=== PATIENT | female | born 2000 | race African-American/Black ===

== ENCOUNTER 2020-08-23 12:21 | Emergency (ER) | payer MEDICAID ==
[~2020-08-23] VITALS: Ht 154.9 cm; Wt 91.0 kg
[2020-08-23 14:06] LABS: CLARITY URINE CLOUDY (CLEAR); COLOR URINE YELLOW (YELLOW); KETONES URINE NEGATIVE (NEGATIVE); LEUKOCYTE ESTERASE URINE 3+ (NEGATIVE); NITRITE URINE NEGATIVE (NEGATIVE); OCCULT BLOOD URINE 1+ (NEGATIVE); PH URINE 6.5 (4.5-8.0); PROTEIN URINE TRACE (NEGATIVE); SPECIFIC GRAVITY URINE 1.028 (1.005-1.030); UROBILINOGEN URINE 0.2 E.U./dL (0.2-1.0)
[2020-08-23] MEDS ORDERED: CEFTRIAXONE SODIUM 250 MG/VIAL IM ONE (14:15)
[2020-08-23] MEDS ORDERED: AZITHROMYCIN 500 MG TABLET PO ONE (14:15)
[2020-08-23] MEDS ORDERED: LIDOCAINE HCL 1% 20ML VIAL (Pyxis) INJ INFIL ONE (14:15)
[2020-08-23] MEDS ORDERED: SULF1TAB48 MT (14:33)
[2020-08-23 15:01] VITALS: BP 133/89
[2020-08-26 08:08] LABS: NEISSERIA GONORRHOEAE NAA Negative (Negative)
== END 2020-08-23 15:02 | disposition home or self-care (01) ==
LOC: ER 12:21
DX: N39.0 Urinary tract infection, site not specified (principal); J45.909 Unspecified asthma, uncomplicated; Z20.2 Contact with and (suspected) exposure to infections with a predominantly sexual mode of transmission
CPT/HCPCS: 81003; 81025; 87086; 87491; 87591; 96372; 99283; J0696; J3490

== ENCOUNTER 2020-09-08 13:40 | Emergency (ER) | payer MEDICAID ==
[~2020-09-08] VITALS: Ht 154.9 cm; Wt 100.0 kg
[~2020-09-08 13:40] MED LIST: SULF1TAB48 MT
[2020-09-08] MEDS ORDERED: ACETAMINOPHEN 325MG TABLET PO STA (16:44)
[2020-09-08 17:30] LABS: BASOPHILS % 0.3 % (0.0-2.0); EOSINOPHILS % 2.4 % (0.0-5.0); HEMATOCRIT. 38.5 % (36.0-48.0); HEMOGLOBIN. 12.5 g/dL (12.0-16.0); LYMPHOCYTES % 19.1 % (20.0-50.0); MEAN CORPUSCULAR HEMOGLOBIN 27.3 pg (28.0-32.0); MEAN CORPUSCULAR VOLUME 84.3 fL (81.0-99.0); MEAN PLATELET VOLUME 8.8 fl (7.4-10.4); MONOCYTES % 7.4 % (2.0-8.0); NEUTROPHILS % 70.8 % (40.0-76.0); PLATELET 293 x1000/uL (130-400); RED BLOOD CELL COUNT 4.57 mill/uL (4.2-5.4); RED CELL DISTRIBUTION WIDTH 14.3 % (11.6-14.6)
[2020-09-08 17:34] LABS: CHLORIDE 105 mEq/L (98-107)
[2020-09-08 17:45] LABS: CLARITY URINE CLEAR (CLEAR); COLOR URINE YELLOW (YELLOW); KETONES URINE TRACE (NEGATIVE); LEUKOCYTE ESTERASE URINE NEGATIVE (NEGATIVE); NITRITE URINE NEGATIVE (NEGATIVE); OCCULT BLOOD URINE NEGATIVE (NEGATIVE); PH URINE 6.5 (4.5-8.0); PROTEIN URINE NEGATIVE (NEGATIVE); SPECIFIC GRAVITY URINE 1.029 (1.005-1.030); UROBILINOGEN URINE 0.2 E.U./dL (0.2-1.0)
[2020-09-08 18:53] VITALS: BP 115/62
== END 2020-09-08 19:00 | disposition home or self-care (01) ==
LOC: ER 13:40
DX: R53.1 Weakness (principal); J45.909 Unspecified asthma, uncomplicated
CPT/HCPCS: 36415; 71045; 80053; 81003; 81025; 85025; 93005; 99285; Z7610

== ENCOUNTER 2020-11-01 17:23 | Emergency (ER) | payer MEDICAID ==
[~2020-11-01] VITALS: Ht 154.9 cm; Wt 97.0 kg
[2020-11-01 17:30] VITALS: BP 111/60
[2020-11-01 19:28] LABS: CLARITY URINE TURBID (CLEAR); COLOR URINE YELLOW (YELLOW); KETONES URINE 1+ (NEGATIVE); LEUKOCYTE ESTERASE URINE 3+ (NEGATIVE); NITRITE URINE NEGATIVE (NEGATIVE); OCCULT BLOOD URINE 1+ (NEGATIVE); PROTEIN URINE NEGATIVE (NEGATIVE); SPECIFIC GRAVITY URINE 1.025 (1.005-1.030); UROBILINOGEN URINE 0.2 E.U./dL (0.2-1.0)
== END 2020-11-01 18:55 | disposition left against medical advice (07) ==
LOC: ER 17:23
DX: Z53.21 Procedure and treatment not carried out due to patient leaving prior to being seen by health care provider (principal); J45.909 Unspecified asthma, uncomplicated
CPT/HCPCS: 81003; 81025; 93005